=== PATIENT | male | born 1935 | race Hispanic/Latino ===

== ENCOUNTER 2019-04-22 10:59 | Inpatient (IN) | payer MEDICARE, SELFPAY ==
[2019-04-22] MEDS ORDERED: Rocuronium Bromide 10 MG/ML (10ML VIAL) ONE (11:12)
[2019-04-22] MEDS ORDERED: Ketamine 50 MG/ML (10ML VIAL) ONE (11:12)
[2019-04-22 11:34] LABS: Actual Bicarbonate (HCO3a) 25.6 mEq/L (22-28); Analyzer IN Cardio ER; Base Excess (BEa) 1.7 mEq/L (-2.0 to +3.0); Carboxyhemoglobin (COHb) 0.7 gm% (0.0-3.0); Hemoglobin (Hb) 12.1 g/dL (14.0-18.0); O2 Tension (PaO2) 164.1 mmHg (> 60.0); Potassium - ABG Lab 3.97 mmol/L (3.70-5.30); pH, Arterial 7.45 (7.35-7.45)
[2019-04-22 11:37] LABS: Puncture Site LRA
[2019-04-22] MEDS ORDERED: fentaNYL Citrate/PF 2,000 MCG in Sodium Chloride 0.9% 60 ML IV SCH (11:38)
--- NOTE | 2019-04-22 11:39 | RAD ---
RADIOGRAPH CHEST 1 VIEW: DATE: 04/22/2019 TIME: 11:28 AM HISTORY: 83-year-old male status post intubation. COMPARISON: 03/23/2019 FINDINGS: New ETT with distal tip at mid thoracic trachea. New esophagogastric tube with side-port in the regio n of occipital stomach. Again noted are the diffuse bilateral interstitial infiltrates, unchanged. Double lumen right IJ hemodialysis catheter remains. This is a supine image, which would be insensiti ve for pneumothorax detection. IMPRESSION: 1. Status post intubation with endotracheal tube, and placement of esophagogastric tube. 2. No interval change in diffuse bilateral interstitial infiltrates, which could represent interstiti al pulmonary fibrosis. 3. Right-sided hemodialysis catheter remains.
[2019-04-22 12:25] LABS: #Basophils 0.1 thou/uL (0.0-0.2); #Eosinphils 0.3 thou/uL (0.0-0.7); #Lymphocytes 1.3 thou/uL (1.20-3.40); #Monocytes 0.4 thou/uL (0.11-0.59); #Neutrophils 4.4 thou/uL (1.40-6.50); %Basophils 0.9 % (0.0-1.0); %Eosinophils 4.6 % (0.0-10.0); %Lymphocytes 19.9 % (21.0-51.0); %Monocytes 6.1 % (0.0-10.0); %Neutrophils 68.5 % (42.0-75.0); Hemoglobin 11.4 g/dL (14.0-18.0); Mean Corpuscular HGB CONC 31.7 g/dL (32.0-36.0); Mean Corpuscular Hemoglobin 31.6 pg (27.0-31.0); Mean Corpuscular Volume 99.6 fL (78.0-98.0); Red Blood Cell (RBC) Count 3.59 mill/uL (4.70-6.10); White Blood Cell (WBC) Count 6.5 thou/uL (4.8-10.8)
[2019-04-22 12:34] LABS: Bacteria/HPF 2+ HPF (None Seen); Bilirubin Negative (Negative); Blood, Urine 2+ (Negative); Clarity Clear (Clear); Glucose, Urine (Dipstick) Normal (Negative); Leukocyte 25 Leu/uL (Negative); Nitrite Negative (Negative); Protein, Urine (Dipstick) 50 mg/dL (Neg-Trace); RBC/HPF 21-50 HPF (0-3); Squamous Epithelial 0-3 HPF (0-3)
[2019-04-22 12:35] LABS: ALT (SGPT) 10 U/L (8-55); AST (SGOT) 54 U/L (5-34); Albumin 2.1 g/dL (3.4-4.8); Alkaline Phosphatase 209 U/L (40-110); Anion Gap 12 mmol/L (10-20); BUN (Urea Nitrogen) 25 mg/dL (8.4-25.7); Bilirubin, Total 1.7 mg/dL (0.2-1.2); Calc. Creatinine Clearance 0 mL/min (70-130); Calcium 8.2 mg/dL (7.8-10.44); Carbon Dioxide 28 mmol/L (23-31); Chloride 103 mmol/L (98-107); Estimated GFR-MDRD 11; Globulin 3.5 g/dL (2.4-3.5); Glucose 79 mg/dL (83-110); Lipase 39 U/L (8-78); Protein, Total 5.6 g/dL (5.8-8.1); Sodium 139 mmol/L (136-145)
[2019-04-22 12:36] LABS: CK (CPK) 156 U/L (30-200); Magnesium 2.3 mg/dL (1.6-2.6); Phosphorus 5.6 mg/dL (2.3-4.7)
[2019-04-22 12:42] LABS: MDiff Complete? YES; Macrocytosis SLIGHT = 6-15 cells (100X) (0-5/hpf); Mean Platelet Volume 8.8 fL (7.4-10.4); Platelet Count 65 thou/uL (130-400); Platelet Morphology Comment Appears Decreased; Polychromasia SLIGHT = 2-3 cells (100X) (0-2/hpf)
[2019-04-22 12:57] LABS: CKMB 6.3 ng/mL (0-6.6)
--- NOTE | 2019-04-22 12:59 | CT ---
CT BRAIN NONCONTRAST: DATE: 04/22/2019 HISTORY: 83-year-old male with altered mental status. COMPARISON: 03/23/2019 FINDINGS: Bilateral frontoparietal relatively thin but very broad and wide subdural hematomas with mixed attenu ation, including intermediate, moderately high, and low density. The regions they cover begin at the anterior inferior frontal regions, and almost reached the bilateral vertex. Because of the underl gemini diffuse brain parenchymal volume loss, there is little or no mass effect caused by the subdural hematomas upon the bilateral cerebral hemispheres. No obstructive hydrocephalus. No acute in tra-axial hemorrhage. No calvarial fracture. No midline shift. No interval change overall. IMPRESSION: 1) bilateral supratentorial mixed age subdural hematomas, mostly probably subacute components. 2) no mass effect. 3) no interval change.
[2019-04-22 13:48] LABS: PTT 41.4 SEC (22.9-36.1)
[2019-04-22 13:49] LABS: INR-International Normal Ratio 1.5; Prothrombin Time 18.3 SEC (12.0-14.7)
[2019-04-22] MEDS ORDERED: Dextrose 5% in Water 1,000 ML IV PRN (13:50)
[2019-04-22] MEDS ORDERED: Ondansetron PF 4 MG/2 ML Vial IVP PRN (13:50)
[2019-04-22] MEDS ORDERED: Dextrose 50% Abboject 50 ML SYRINGE SLOW IVP PRN (13:50)
[2019-04-22] MEDS ORDERED: Insulin Regular 300 UNITS/3 ML VIAL SC PRN (13:50)
[2019-04-22 15:10] VITALS: BMI 26.0
--- NOTE | 2019-04-22 15:23 | RAD ---
Exam: 1 view abdomen HISTORY: Evaluate orogastric tube placement FINDINGS: Single supine portable view the abdomen demonstrates orogastric tube with the distal tip le ft upper quadrant. Sidehole of the orogastric tube is just beyond the GE junction. Advancement is recommended. IMPRESSION: Orogastric tube as above. CODE T
--- NOTE | 2019-04-22 15:32 | HP ---
TRAUMA SURGEON: Salvatore Shabazz MD CONSULTING PHYSICIANS: 1. Dr. Wisdom of Neurosurgery. 2. Dr. Koenig of Nephrology. 3. Dr. Diaz of Pulmonary/Critical Care. HISTORY OF PRESENT ILLNESS: The patient is an 83-year-old male, who presented to the emergency department via EMS after his family found him unresponsive this morning. On arrival, he had snoring respirations and the patient was intubated by Dr. Beck using randee and ketamine. Upon further evaluation, the patient received a CT scan of the brain, which demonstrated bilateral supratentorial mixed-age subdural hematomas, which are likely subacute. He did have a fall out of his wheelchair on Thursday, he fell backwards striking his head. He did not have a loss of consciousness at that time and he was not evaluated after his fall initially. He does not take any anticoagulation. His family reported he has not been feeling particularly ill over the past couple of days. However, he does have liver cirrhosis and takes lactulose daily. He has not had a bowel movement in several days. He is compliant with his medications. He lives with his and his family is very involved in his medical care. He was last hospitalized just under 1 month ago for acute respiratory distress, where he was placed on BiPAP and dialyzed. At that time, he did also receive a CT of the brain that had demonstrated a traumatic brain injury at that time, which also appeared subacute. At the time of my evaluation, the patient's GCS was 3T, although he had received randee and ketamine. The patient has ESRD and cirrhosis with end-liver dysfunction, so it is unclear if his diminished GCS is from his traumatic brain injury or the medications use during intubation or the patient's elevated ammonia at 167. The emergency physician asked Trauma Surgery to admit the patient due to his brain injury. We did consult Nephrology, Neurosurgery, and Pulmonary/Critical Care. The patient is to be dialyzed today. Today is his normal dialysis day. His last dialysis date was Thursday and he did not miss the treatment. REVIEW OF SYSTEMS: Unable to complete due to the patient's mental status. MEDICAL HISTORY: ESRD, on dialysis Thursday, Thursday, Thursday; hypertension; hypothyroidism; liver cirrhosis; COPD; and emphysema. PAST SURGICAL HISTORY: Hernia repair, right knee surgery, AV surgery, right chest hemodialysis catheter placement on 02/19/2019, left-sided wrist fistula placement, unsure when. SOCIAL HISTORY: The patient is a previous smoker, quit more than 10 years ago. He lives at home with his family. No history of drug or alcohol use. MEDICATIONS: 1. Lactulose 30 mg 3 to 4 times a day. 2. Levothyroxine 112 mcg daily. 3. Pantoprazole 40 mg daily. 4. Rifaximin 550 mg once daily. ALLERGIES: NO KNOWN DRUG ALLERGIES. PHYSICAL EXAMINATION: VITAL SIGNS: The patient is afebrile, heart rate 86, blood pressure 125/73, oxygen saturation 100%. The patient intubated on FiO2 of 40%. PRIMARY SURVEY: The patient is intubated and airway is intact. Adequate breath sounds bilaterally. 2+ pulses in the bilateral radials, femorals, and DPs. GCS is 3T. The patient has bruising to his left lateral thigh. There is also bruising to his left forearm. The patient's family report these are not new since his fall. No signs of external bleeding. SECONDARY SURVEY: HEAD: Normocephalic and atraumatic. No gross palpable skull deformities or tenderness. Pupils 3 to 2, equal, round, reactive to light bilaterally. ENT: No hemotympanum. No epistaxis. No septal hematoma. Midface stable to manipulation. No blood in the oropharynx. Dentition is intact. No anterior neck injury/crepitus/tenderness. C-SPINE: No step-offs or deformities. C-collar not in place. CHEST: Nontender. No crepitus. No abrasions or ecchymosis. Equal chest movement. Dialysis line to right anterior chest wall. ABDOMEN: Soft, nontender, nondistended with no signs of trauma. PELVIS: Stable to manipulation. No abrasions or ecchymosis. Davis catheter in place with dark yellow urine in bag. RECTAL: Deferred. GENITOURINARY: Gross deformity. Davis in place. EXTREMITIES: Left upper extremity with bruising and discoloration, which is chronic. There is a fistula in the left wrist with positive pulses in bilateral radials, femorals, and DPs. BACK/SPINE: No step-offs or deformity to the thoracic or lumbar spine. NEUROLOGIC: GCS is 3T. LABORATORY FINDINGS: White count 6.5, hemoglobin 11.4, hematocrit 35.8, and platelets 65. INR 1.5. Sodium 139, potassium 4.0, chloride 103, bicarb 28, BUN 25, creatinine 5.0, glucose 79, phosphorus 5.6, magnesium 2.5, total bilirubin 1.7, AST 54, ALT 10, and alkaline phosphatase 207. Ammonia 167. CK 156, troponin 0.064. Lipase 39. Albumin 2.1. UA is negative. ABG; pH is 7.45, CO2 of 38, O2 of 164.1, O2 saturation is 98.8, base excess is 1.7. Ionized calcium 1.1. DIAGNOSTIC FINDINGS: Chest x-ray demonstrates status post intubation with an endotracheal tube and placement of esophagogastric tube. No interval changes. Diffuse bilateral interstitial infiltrates, which could represent interstitial pulmonary fibrosis. Right-sided hemodialysis catheter remains. CT scan of the brain demonstrates bilateral supratentorial mixed-age subdural hematoma, most probably subacute component. No mass effect. No interval change. ASSESSMENT: 1. Status post fall 4 days before presentation. 2. Acute mental status change. 3. Bilateral supratentorial mixed-age subdural hematomas, subacute. 4. Elevated ammonia. 5. History of end-stage renal disease, hypertension, hypothyroidism, liver cirrhosis, chronic obstructive pulmonary disease, and emphysema. PLAN: The patient has been admitted to the CCU under the Trauma Service. Dr. Diaz of Pulmonary/Critical Care will manage his critical care needs. Dr. Koenig of Nephrology has also been consulted and plans to dialyze the patient today. Dr. Wisdom of Neurosurgery has been consulted for the subacute traumatic brain injury and will see the patient today. We will perform q.1 hour neuro checks, elevate the head of the bed at 30 degrees. Goal systolic blood pressure is less than 160. He is currently on a fentanyl drip for pain control and sedation. He will receive a repeat head CT in the morning. The patient did receive randee and ketamine during intubation. It is likely that those have not been metabolized and cleared as the patient has liver cirrhosis and kidney failure and such, an accurate neurological exam cannot be determined at this time. The patient was previously documented as a DNR on his last hospital admission about 1 month ago. I did speak to his and the patient's children who reported it was okay to provide medications and intubation for the patient. However, the patient had previously expressed that he did not want chest compressions. Those orders have been updated in the computer. This patient was discussed with Dr. Sherman before this dictation. Job ID: [id number] MTDD
--- NOTE | 2019-04-22 17:01 | CON ---
DATE OF CONSULTATION: REASON FOR CONSULTATION: End-stage renal disease on maintenance hemodialysis. HISTORY OF PRESENT ILLNESS: This is an 83-year-old gentleman presented to the hospital with respiratory failure and I was consulted for maintenance hemodialysis. The patient can give no further history and is intubated. PAST MEDICAL HISTORY: Significant for ESRD, hypertension, cirrhosis, COPD, failure to thrive, hernia repair, AV fistula surgery, tunneled dialysis catheter, and history of subdural hematoma. SOCIAL ECONOMIC HISTORY: No alcohol or drug use presently. HOME MEDICATION: List reviewed. HOSPITAL MEDICATION: List reviewed. REVIEW OF SYSTEMS: Unobtainable. PHYSICAL EXAMINATION: GENERAL: The patient is resting. VITAL SIGNS: Afebrile, pulse 86, breathing 16, and blood pressure 125/73. GENERAL APPEARANCE AND MENTAL STATUS: Fair. HEAD/NECK: Normocephalic. Atraumatic. EYES: EOMI. No deformity. EARS: Clear. No ulcers. NOSE: Intact. No lesions. MOUTH: Clear. No discharge. THROAT: Clear. No exudate. LUNGS: Clear. No crackles. CARDIAC: S1, S2. No rub. ABDOMEN: Benign. Bowel sounds positive. GENITALIA/RECTUM: Davis absent. BACK/EXTREMITIES: Edema 0+. NEUROLOGICAL: The patient is resting. SKIN: LYMPHATICS: LABORATORY DATA: Reviewed. ASSESSMENT AND PLAN: 1. Stage 6 chronic kidney disease. Plan dialysis. 2. Hypertension, stable. 3. Anemia, stable. 4. Medication based on GFR appropriate. We will follow closely. Job ID: [id number]
[2019-04-22] MEDS ORDERED: Lorazepam 2 MG/ML VIAL SLOW IVP PRN (17:28)
--- NOTE | 2019-04-22 18:35 | CON ---
DATE OF CONSULTATION: SERVICE: Pulmonary Medicine. REASON FOR CONSULTATION: Intubated patient. HISTORY OF PRESENT ILLNESS: The patient is an 83-year-old male with past medical history significant for end-stage renal disease. He has been on dialysis for quite some time. He has been talking to his physician and his family members about stopping dialysis altogether because he was exhausted with what was going on to him. Additionally, dialysis was becoming increasingly ineffective. The patient was having toxins that were refractory to toxin development that was refractory to his dialysis. Ultimately, he lapsed into comma, and/or lapsed into a deep sleepy state. He was essentially unresponsive, brought to the emergency department. His GST was below 8, he was intubated to protect his airway. He was placed on mechanical ventilation. Initial diagnostic workup suggested that he had significant toxins developed. He had a CT of the head demonstrating a little bit of blood in the brain. That being said, it really was not that significant and certainly was not causing any significant mass effect or shift. He was tucked into the ICU. We have had a chance to have a couple of family conversations. I talked to them originally about what the next couple of days we are going to be looking like. That being said, Dr. Koenig, who knows the patient and his family well, has suggested that dialysis moving forward is essentially not going to be very helpful. Additionally, the patient has voiced his concerns when he was in a lucid state that he no longer wanted to pursue dialysis. After talking about these things with the patient's family, they have decided that in keeping with the patient's wishes to transition over to comfort care. As such, when the family is ready, we are moving in that direction. I have clarified with the family that I was not going to do any additional laboratory studies or diagnostic interventions. When the family is ready, we can transition over to comfort care only. They will allow us to know when that is. PAST MEDICAL HISTORY: 1. End-stage renal disease. 2. Hypertension. 3. Hypothyroidism. 4. Cirrhosis. 5. COPD. PAST SURGICAL HISTORY: 1. Herniorrhaphy. 2. Right knee surgery. 3. Right chest hemodialysis catheter placement. 4. Left-sided wrist fistula placement. SOCIAL HISTORY: He has an extensive smoking history, but quit over a decade ago. He lives at home with his family. There is no alcohol or illicit drug use at this point. FAMILY HISTORY: Noncontributory. ALLERGIES: NO KNOWN DRUG ALLERGIES. MEDICATIONS: List of the patient's inpatient medications was reviewed. I have discontinued everything except for comfort measures. REVIEW OF SYSTEMS: This cannot be obtained because the patient is encephalopathic. PHYSICAL EXAMINATION: VITAL SIGNS: Afebrile, pulse 83, blood pressure 102/69, respirations 7 , and saturation 100% on 21% FiO2. GENERAL: The patient is intubated. He is on a little bit of sedation to maintain comfort. HEENT: Normocephalic and atraumatic. Sclerae white. Conjunctivae pink. Oral mucosa is moist without lesions. LUNGS: Very good air entry. There is not much of prolonged expiratory phase or wheezing present. HEART: Normal rate and regular. ABDOMEN: Soft, nontender, and nondistended. Bowel sounds are positive. MUSCULOSKELETAL: No cyanosis or clubbing. Diffuse 1 to 2+ pitting is present throughout. NEUROLOGIC: Pupils are equal, round, and reactive. He is comfortably overbreathing the ventilator. It demonstrates a very good cough and gag. He withdraws from noxious stimuli in the bilateral upper and lower extremities. : Davis catheter in place. LABORATORY DATA: WBC 6.5, hemoglobin 11.4, platelets 65,000. INR 1.5. A pH 7.45, pCO2 of 38, pO2 of 164. Creatinine 5.0. Basic metabolic profile is otherwise unremarkable. AST 54, total bilirubin 1.7. Alkaline phosphatase 209. Albumin 2.1, ammonia 167, troponin 0.064. CK 156, phosphorus 5.6, and magnesium 2.3. Urinalysis is significant for red blood cells and 2+ bacteria. IMAGIN. Abdominal x-ray demonstrates enteric catheter coursing below the level of the diaphragm. Nonspecific bowel gas pattern is otherwise present. 2. CT of the brain demonstrates bilateral supratentorial mixed age, subdural hematomas, likely subacute. No mass effect is present. Compared to prior, there has been no interval change. 3. Chest x-ray demonstrates endotracheal tube, enteric catheter both in place. Bilateral interstitial infiltrates are present. Right-sided IJ tunneled dialysis catheter is in place. ASSESSMENT: 1. Respiratory failure secondary to inability to protect airway. 2. Metabolic encephalopathy. 3. Subdural hematomas, subacute and likely not our issue here. 4. End-stage renal disease. 5. Advanced cirrhosis. DISCUSSION AND PLAN: At this point, the patient is not tolerating dialysis. He himself has previously vocalized that he was at the end of his life and wanted to stop dialysis altogether. As such, we had a discussion with the patient's family about what the patient's wishes would be moving forward. They have ultimately suggested to me that he would like to transition over to comfort care. As such, they understand that he will be passing away during this hospital stay. I have confirmed with the daughter that would be acceptable for us to discontinue all pending studies, laboratories, and medications directed at keeping him alive for a long period of time. I have also discussed with them that I would be initiating him on medications that will use for comfort if he needs them including morphine and Ativan. When the family has convened and they are ready for transition over to comfort measures only, we will extubate to comfort. They do appreciate he will probably be breathing for a couple of hours, if not days to weeks before he finally expires. CRITICAL CARE TIME: 30 minutes. Job ID: [id number]
[2019-04-22] MEDS ORDERED: Famotidine 20 MG TAB PO SCH (21:00)
--- NOTE | 2019-04-22 23:17 | HP ---
CHIEF COMPLAINT: Unresponsiveness. HISTORY OF PRESENT ILLNESS: This is an 83-year-old male with multiple medical problems, who was found unresponsive this morning by his family. He was brought in by ambulance where he was intubated in the emergency room. Apparently, there is a history that he did fall back from his wheelchair on Thursday and hit the back of his head, but he did not have any loss of consciousness. He has been doing okay up until this event, but the family says that when his ammonia level gets elevated, he tends to act like this. PAST MEDICAL HISTORY: Significant for cirrhosis, renal failure, hypertension, hypothyroidism, COPD. PAST SURGICAL HISTORY: He has had a hernia repair, right knee replacement. He has a dialysis catheter and a fistula. MEDICATIONS: 1. Lactulose. 2. Levothyroxine. 3. Pantoprazole. 4. Rifampin. ALLERGIES: NO KNOWN DRUG ALLERGIES. SOCIAL HISTORY: He is retired. He lives with his . No current tobacco. PHYSICAL EXAMINATION: VITAL SIGNS: Temperature 97.7, pulse 83, blood pressure 102/69. GENERAL: He is lethargic. He is intubated. He is opening his eyes spontaneously. There is no external sign of trauma. LUNGS: Clear. HEART: Regular rate and rhythm. ABDOMEN: Soft, nontender. EXTREMITIES: Unremarkable. LABORATORY DATA: His white count 6.5, H and H 11 and 35, platelet count of only 65,000. His electrolytes show a creatinine of 5, BUN of 25, glucose 79. His ammonia level is 167. His total bilirubin is 1.7. His PT is 18.3, INR 1.5, PTT of 41.4. Brain CT shows bilateral supratentorial mixed age subdural hematomas, probably subacute. No mass effect. No interval change. Neurosurgery feels that nothing further needs to be done. ASSESSMENT: Multiple serious medical problems with end-stage liver disease, end-stage renal disease, hypertension. PLAN: Medical management. Recommend transfer to the medical service tomorrow if Neurosurgery has no further recommendations. Job ID: [id number]
--- NOTE | 2019-04-22 23:46 | CON ---
DATE OF CONSULTATION: HISTORY OF PRESENT ILLNESS: Mr. Kimball was brought to the emergency department this morning via EMS, as family found him unresponsive this morning in bed. They state that he fell Thursday out of his wheelchair, but did not seek any treatment at that time. He had been doing well. Last known normal was last night. The patient was seen in the ER. He had some coughing and there was worry about him keeping his airway clear. He was intubated. The patient has a significant past medical history of kidney disease and liver disease. He is on dialysis. He has elevated ammonia level. Neurosurgery was consulted due to bilateral subdural hematomas with mixed consistency of blood. When I see him, he is resting in ICU. He has just been started on dialysis. He does not respond to my voice, but if I stimulate him with chest rub or pinch his shoulder, he gets little agitated. He is chewing and mouthing on the tube. He has gag reflex. His pupils are equal, round, and reactive. He is blinking and moving his head a little bit. He does have withdrawal on both lower legs. REVIEW OF SYSTEMS: A 10-point review of systems was completed, negative other than stated in the above HPI. PAST MEDICAL HISTORY: ESRD, on dialysis Thursday, Thursday, and Thursday; hypertension; hypothyroidism; liver cirrhosis; COPD; and emphysema. PAST SURGICAL HISTORY: Hernia repair, right knee surgery, AV surgery, right chest hemodialysis catheter placed in 02/2019, left-sided wrist fistula placement. SOCIAL HISTORY: The patient is a previous smoker, quit more than 10 years ago. He lives at home with his family. No history of drug or alcohol use. MEDICATIONS: 1. Lactulose. 2. Levothyroxine. 3. Pantoprazole. 4. Rifaximin. ALLERGIES: NO KNOWN DRUG ALLERGIES. PHYSICAL EXAMINATION: VITAL SIGNS: Temperature 97.7, blood pressure 118/79, respirations 15, O2 sats 100% on ventilator, heart rate 88. CONSTITUTIONAL: Patient is awake, does not appear to be alert. He is not responsive to voice. He is afebrile normotensive. HEENT: Head is normocephalic and atraumatic. Pupils are equal, round, and reactive to light. Extraocular movements intact, Moist mucous membranes. EXTREMITIES: The patient is moving his neck a bit and lower extremities. He is moving to painful stimuli. He is withdrawing and did not have any response to upper extremity. NEUROLOGIC: The patient is awake. GCS of 6, 1, 1T, 4. He is withdrawing form pain in both the lower extremities. The patient is agitated to painful stimuli. He is trying to move his head a little bit, moving his eyes little bit, but not focusing on anything. He is mouthing on the tube in his mouth. He does have a gag. IMAGING: CT of the brain shows bilateral supratentorial mixed-age subdural hematomas, mostly probably subacute component. No mass effect. No integral change. ASSESSMENT AND PLAN: Mr. Kimball is an 83-year-old male who fell on Thursday, has mixed density subdural hematomas bilaterally; has significant liver and kidney failure , on dialysis; had a significantly high ammonia level; had altered mental status. He has started dialysis and appears to be becoming more alert. Given the size of this hemorrhage, we do not need to operate at this time. We would like to follow Mr. Kimball in our office with a repeat CT in approximately 3 weeks. No blood thinners to be used and has little heparin with dialysis as necessary. For any further questions, please contact Neurosurgery. Job ID: [id number] MTDD
--- NOTE | 2019-04-23 01:43 | HP ---
PROGRESS NOTE SUBJECTIVE: This is an 83-year-old gentleman, who remains in the Critical Care Unit. The patient remains on full mechanical ventilation. The patient remains on a fentanyl drip for sedation. The patient did receive dialysis earlier today. Neurologic status is unchanged, GCS 3T. PHYSICAL EXAMINATION: VITAL SIGNS: Stable, afebrile. GENERAL: The patient is intubated on minimal sedation for comfort. RESPIRATORY: Bilateral breath sounds clear. No wheezing, rales, or rhonchi. HEART: Regular rate, regular rhythm. ABDOMEN: Soft, nontender, nondistended. NEUROLOGIC: Pupils are equal and reactive. The patient is overbreathing the ventilator. ASSESSMENT: 1. Status post fall 4 days before presentation. Acute mental status change. 2. Bilateral supratentorial mixed age subdural hematomas, subacute. 3. Elevated beta ammonia. 4. Respiratory failure secondary to inability to protect airway. 5. History of end-stage renal disease. 6. Hypertension. 7. Hypothyroidism. 8. Liver cirrhosis. 9. Chronic obstructive pulmonary disease. PLAN: Dr. Diaz has spoke with family regarding transitioning to a comfort care. Possible extubation tonight or tomorrow when family is ready. Job ID: [id number] MTDD
[2019-04-23 04:00] VITALS: TEMP 97.8
[2019-04-23] MEDS ORDERED: Prevnar 13-Val Conj/PF 0.5 ML SYRINGE IM ONE (09:00)
[2019-04-23 10:05] VITALS: BP 80/52
[2019-04-23] MEDS ORDERED: Scopolamine 1.5 mg/72 hour Patch TD SCH (14:30)
[2019-04-23] MEDS: Morphine 2 MG/ML SYRINGE SLOW IVP PRN ×2 (14:33→18:01)
--- NOTE | 2019-04-23 18:13 | DIS ---
DATE OF ADMISSION: 04/22/2019 DATE OF DISCHARGE: 04/23/2019 ADMISSION DIAGNOSES: 1. Patient found unresponsive. 2. Bilateral supratentorial mixed age subdural hematomas, subacute. 3. Elevated ammonia. 4. Acute metabolic encephalopathy. 5. Acute respiratory failure due to altered mental status. DISCHARGE DIAGNOSES: 1. Patient found unresponsive. 2. Bilateral supratentorial mixed age subdural hematomas, subacute. 3. Elevated ammonia. 4. Acute metabolic encephalopathy. 5. Acute respiratory failure due to altered mental status. CONSULTING PHYSICIANS: 1. Dr. Wisdom of Neurosurgery. 2. Dr. Diaz of Pulmonology. 3. Dr. Luevano of Nephrology. PROCEDURES: None. HOSPITAL COURSE: The patient is an 83-year-old male, who presented to the emergency department via EMS after being found unresponsive by his family. Family did report that he had a fall backwards out of his wheelchair 4 days prior to admission. On arrival, the patient had snoring respirations, and there was concern for patient's ability to maintain his airway, and subsequently he was intubated in the emergency department. CT scans demonstrated the patient had bilateral supratentorial mixed age subdural hematomas that were subacute, however, he was still admitted to the Trauma Service and brought to the ICU. Pulmonology was consulted for Pulmonary Critical Care. Dr. Koenig of Nephrology was consulted as the patient has a history of end-stage renal disease, on dialysis, it was a dialysis day, the patient was dialyzed at the time of admission. The patient also has a history of end-stage renal disease, hypertension, hypothyroidism, cirrhosis, COPD, and emphysema. Ammonia was elevated at the time of admission. The patient was taking home lactulose, but has not had a bowel movement in several days. All sedating medications were stopped when he was admitted. The patient had received randee and ketamine at the time of admission. His GCS was 3T at that time. Dr. Diaz did meet with the family who had previously been admitted 1 month ago and had expressed wanting to be a DNR. Dr. Koenig and Dr. Diaz spoke with the family as well as Dr. Shabazz, and the family decided to make the patient a DNR and comfort measures only. The patient was extubated that evening in the CCU and then transferred to oncology floor with comfort measures only. Today, the patient's condition continued to slowly deteriorate. He was not participatory and nonresponsive to verbal and of noxious stimuli, however, he was breathing on his own and maintaining his own blood pressure. Hospice was consulted after discussion with the family. They accepted the patient and he was discharged to their inpatient care. DISCHARGE DISPOSITION: Inpatient hospice. DISCHARGE CONDITION: Poor. PHYSICAL EXAMINATION: VITAL SIGNS: The patient is afebrile and hemodynamically stable, saturating 93% on room air. GENERAL: Ill-appearing elderly male, lying in bed with no signs of acute distress. PULMONARY: Equal chest rise and fall. Upper airway type rattling heard over bilateral chest. No signs of acute respiratory distress. CARDIAC: Regular rate and rhythm. No murmurs, gallops, or rubs. GI: Abdomen is soft, nontender, nondistended. EXTREMITIES: 2+ pulses in all extremities. Gross motor and sensation are intact. NEURO: GCS is 3. DISCHARGE INSTRUCTIONS: The patient was discharged to inpatient hospice with comfort measures only. DISCHARGE MEDICATIONS: 1. P.r.n. Ativan. 2. Morphine. 3. Scopolamine patch. FOLLOWUP APPOINTMENTS: None. This is a summary of the patient's hospitalization. For full details, please see his medical record in its entirety. Job ID: [id number]
--- NOTE | 2019-04-23 21:43 | PRG ---
DATE OF SERVICE: 04/23/2019 SERVICE: Pulmonary Medicine. INTERVAL HISTORY: The patient is doing okay from a comfort standpoint. His family is at bedside. He is completely encephalopathic and not able to provide any additional elements of the history. PHYSICAL EXAMINATION: VITAL SIGNS: Afebrile. Pulse 82, blood pressure 80/52, respirations 20, saturation 93%, currently on room air. GENERAL: The patient is encephalopathic and he is poorly responsive. HEENT: Normocephalic and atraumatic. Sclerae are white. Conjunctivae are pink. HEART: Normal rate. Regular. LUNGS: Rhonchi are present. There is no prolonged expiratory phase. ABDOMEN: Bowel sounds are present. MUSCULOSKELETAL: No cyanosis or clubbing. No pitting edema. ASSESSMENT: 1. Respiratory failure secondary to inability to protect airway. 2. Metabolic encephalopathy. 3. Subdural hematomas, subacute. 4. End-stage renal disease. 5. Advanced cirrhosis. DISCUSSION AND PLAN: At this point, the patient is perfectly comfortable. He is getting some comfort medications on as needed basis. He is surrounded by family. They have no concerns or issues presently. At this point, he has no further requirements for inpatient Pulmonary or Critical Care opinion, and I will sign off. It is my understanding he is being discharged from the hospital to the hospice service at this point. Job ID: [id number] MTDD
== END 2019-04-23 18:40 | disposition hospice, inpatient (51) | DRG 85 ==
LOC: ERS 10:59 → CCU 13:20 → ONC 04-23 06:19
PROVIDERS: ADMIT Surgery; ATTEND Surgery
PROC: 0BH17EZ Insertion of Endotracheal Airway into Trachea, Via Natural or Artificial Opening (ICD-10-PCS; principal; 2019-04-22)
PROC: 5A1935Z Respiratory Ventilation, Less than 24 Consecutive Hours (ICD-10-PCS; 2019-04-22)
DX: S06.5X0A Traumatic subdural hemorrhage without loss of consciousness, initial encounter (principal); G93.41 Metabolic encephalopathy; N18.6 End stage renal disease; J96.00 Acute respiratory failure, unspecified whether with hypoxia or hypercapnia; I12.0 Hypertensive chronic kidney disease with stage 5 chronic kidney disease or end stage renal disease; R40.2342 Coma scale, best motor response, flexion withdrawal, at arrival to emergency department; R40.2112 Coma scale, eyes open, never, at arrival to emergency department; R40.2212 Coma scale, best verbal response, none, at arrival to emergency department; D64.9 Anemia, unspecified; J43.9 Emphysema, unspecified; K74.60 Unspecified cirrhosis of liver; W05.0XXA Fall from non-moving wheelchair, initial encounter; E03.9 Hypothyroidism, unspecified; Z66 Do not resuscitate; Z51.5 Encounter for palliative care; Z87.891 Personal history of nicotine dependence; Y93.89 Activity, other specified; Y92.008 Other place in unspecified non-institutional (private) residence as the place of occurrence of the external cause; Z99.2 Dependence on renal dialysis
CPT/HCPCS: 31500; 51702; 70450; 71045; 74018; 80053; 81003; 81015; 82140; 82550; 82553; 82805; 83690; 83735; 84100; 84484; 85025; 85610; 85730; 93005; 94002; 94760; 96365; 96366; J2270; J3010; J3490

== ENCOUNTER 2019-04-23 18:52 | Inpatient (IN) | payer OTHER ==
[2019-04-23] MEDS ORDERED: Lorazepam 2 MG/ML VIAL SLOW IVP PRN (19:24)
[2019-04-23] MEDS ORDERED: Ondansetron PF 4 MG/2 ML Vial SLOW IVP PRN (19:24)
[2019-04-23] MEDS ORDERED: Morphine 2 MG/ML SYRINGE SLOW IVP PRN (19:25)
[2019-04-23 19:54] VITALS: BP 138/56
[2019-04-23] MEDS ORDERED: Scopolamine 1.5 mg/72 hour Patch TOP SCH (20:00)
[2019-04-23] MEDS ORDERED: Morphine 2 MG/ML SYRINGE SLOW IVP SCH (21:00)
[2019-04-23 21:42] VITALS: BMI 21.9
--- NOTE | 2019-04-25 13:52 | DIS ---
DATE OF ADMISSION: 04/23/2019 DATE OF DISCHARGE: 04/23/2019 SUMMARY: He had a subdural hematoma with failure to thrive. The patient's family chose to pursue hospice care as the patient did not want dialysis. Date and time of noted above. No complications were reported. DATE OF : 04/23/2019 at 9 p.m. HISTORY OF PRESENT ILLNESS: This is a very pleasant 83-year-old gentleman, who presented to the hospital with end-stage renal disease, DISPOSITION: The patient was sent to the [facility] [place]. Job ID: [id number] [facility]
== END 2019-04-23 21:00 | disposition expired | DRG 951 ==
LOC: ONC 18:52
PROVIDERS: ADMIT Internal Medicine Nephrology; ATTEND Internal Medicine Nephrology
DX: Z51.5 Encounter for palliative care (principal); N18.6 End stage renal disease; I62.00 Nontraumatic subdural hemorrhage, unspecified; I12.0 Hypertensive chronic kidney disease with stage 5 chronic kidney disease or end stage renal disease; E03.9 Hypothyroidism, unspecified; J44.9 Chronic obstructive pulmonary disease, unspecified; Z96.651 Presence of right artificial knee joint; Z79.899 Other long term (current) drug therapy; K72.90 Hepatic failure, unspecified without coma; Z66 Do not resuscitate
CPT/HCPCS: J2270